=== PATIENT | male | born 1955 | race Caucasian/White ===

== ENCOUNTER 2016-06-24 07:44 | Emergency (ER) | payer SELFPAY ==
--- NOTE | 2016-06-24 09:03 | ER Document Report ---
ED General - General Chief Complaint: Headache Stated Complaint: TINGLING IN FINGER Mode of Arrival: Ambulatory Information source: Patient Notes: 61-year-old male presents with complaints of sudden headache right eye pain associated with right-sided weakness numbness and confusion. Patient notes symptoms lasted about now resolved while in the emergency department. Patient has had a history of a left-sided carotid stenosis with carotid ectomy. TRAVEL OUTSIDE OF THE [place] 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 Recently seen / treated by doctor: Yes - Related Data Allergies/Adverse Reactions: zolpidem [From Ambien] Allergy (Verified 06/24/16 07:51) Past Medical History - Social History Smoking Status: Current Every Day Smoker Cigarette use (# per day): No Chew tobacco use (# tins/day): Yes Smoking Education Provided: No Frequency of alcohol use: None Drug Abuse: Marijuana Family History: Reviewed & Not Pertinent Patient has suicidal ideation: No Patient has homicidal ideation: No Endocrine Medical History: Reports: Hx Diabetes Mellitus Type 2 Renal/ Medical History: Denies: Hx Peritoneal Dialysis Past Surgical History: Reports: Hx Cardiac Surgery Review of Systems - Review of Systems Notes: REVIEW OF SYSTEMS: CONSTITUTIONAL : Denies fever, chills, or sweats. Denies recent illness. EENT: Denies eye, ear, throat, or mouth pain or symptoms. Denies nasal or sinus congestion or discharge. Denies throat, tongue, or mouth swelling or difficulty swallowing. CARDIOVASCULAR: Denies chest pain. Denies palpitations or racing or irregular heart beat. Denies ankle edema. RESPIRATORY: Denies cough, cold, or chest congestion. Denies shortness of breath, difficulty breathing, or wheezing. GASTROINTESTINAL: Denies abdominal pain or distention. Denies nausea, vomiting , or diarrhea. Denies blood in vomitus, stools, or per rectum. Denies black, tarry stools. Denies constipation. GENITOURINARY: Denies difficulty urinating, painful urination, burning, frequency, blood in urine, or discharge. MUSCULOSKELETAL: Denies back or neck pain or stiffness. Denies joint pain or swelling. SKIN: Denies rash, lesions or sores. HEMATOLOGIC : Denies easy bruising or bleeding. LYMPHATIC: Denies swollen, enlarged glands. NEUROLOGICAL: Symptoms have resolved PSYCHIATRIC: Denies anxiety or stress. Denies depression, suicidal ideation, or homicidal ideation. ALL OTHER SYSTEMS REVIEWED AND NEGATIVE. Dictation was performed using [employer] voice recognition software PHYSICAL EXAMINATION: GENERAL: Well-appearing, well-nourished and in no acute distress. HEAD: Atraumatic, normocephalic. EYES: Pupils equal round and reactive to light, extraocular movements intact, sclera anicteric, conjunctiva are normal. ENT: Nares patent, oropharynx clear without exudates. Moist mucous membranes. NECK: Normal range of motion, supple without lymphadenopathy LUNGS: Breath sounds clear to auscultation bilaterally and equal. No wheezes rales or rhonchi. HEART: Regular rate and rhythm without murmurs ABDOMEN: Soft, nontender, nondistended abdomen. No guarding, no rebound. No masses appreciated. Musculoskeletal: Normal range of motion, no pitting or edema. No cyanosis. NEUROLOGICAL: Cranial nerves grossly intact. Normal speech, normal gait. Normal sensory, motor exams and NIH score 0 PSYCH: Normal mood, normal affect. SKIN: Warm, Dry, normal turgor, no rashes or lesions noted. Physical Exam - Vital signs Vitals: Temp Pulse Resp BP Pulse Ox 97.4 F 92 16 136/91 H 97 06/24/16 07:49 06/24/16 07:49 06/24/16 07:49 06/24/16 07:49 06/24/16 07:49 Course - Re-evaluation Re-evalutation: 06/24/16 09:02 Patient does not wish to be admitted, I did explain to them risk and benefits, I will await lab results and imaging results first. He is adamant that he believes 06/24/16 09:45 06/24/16 10:02 Patient already takes full dose aspirin, he refuses neurology follow-up, he refuses admission, he understands risks and benefits. I have had multiple conversations with him regarding this and he states he will at least follow-up with low cost clinic if I provide him with. Discharge instructions will include this After performing a Medical Screening Examination, I spoke with the patient at length in regards to leaving the hospital against medical advice. I do not believe the patient should leave but the patient is alert oriented x4, understands the risks and benefits of staying and leaving including disability and . Pt understands that he can return at any time for further care and is more than welcome to do so. Pt verbalizes this understanding. - Vital Signs Vital signs: Temp Pulse Resp BP Pulse Ox 97.4 F 92 16 136/91 H 97 06/24/16 07:49 06/24/16 07:49 06/24/16 07:49 06/24/16 07:49 06/24/16 09:10 - Laboratory Result Diagrams: 06/24/16 09:00 06/24/16 09:00 Laboratory results interpreted by me: 06/24/16 06/24/16 06/24/16 09:00 09:00 09:00 RDW 14.1 H Chloride 108 H BUN 27 H Glucose 143 H POC Glucose 151 H - Diagnostic Test Radiology reviewed: Image reviewed, Reports reviewed - EKG Interpretation by Me EKG shows normal: Sinus rhythm, Holden, Intervals, QRS Complexes Discharge - Discharge Clinical Impression: TIA (transient ischemic attack) Qualifiers: Transient cerebral ischemia type: unspecified Qualified Code(s): G45.9 - Transient cerebral ischemic attack, unspecified Condition: Serious Disposition: AGAINST MEDICAL ADVICE Additional Instructions: Please return immediately at any time for further evaluation and care You're currently leaving AGAINST MEDICAL ADVICE, I believe this is a terrible decision, but since you are alert and oriented and understands the risks and benefits of staying versus leaving you may leave against my decision Referrals: COOPER PHAN MD [ACTIVE STAFF] - Follow up tomorrow
[2016-06-24 09:24] LABS: ABSOLUTE BASOPHILS # (AUTO) 0.1 10^3/uL (0.0-0.2); ABSOLUTE EOSINOPHILS # (AUTO) 0.2 10^3/uL (0.0-0.6); ABSOLUTE LYMPHOCYTES (AUTO) 1.8 10^3/uL (0.5-4.7); ABSOLUTE MONOCYTES (AUTO) 0.5 10^3/uL (0.1-1.4); ABSOLUTE NEUT (AUTO) 4.7 10^3/uL (1.7-8.2); EOSINOPHILS % (AUTO) 2.9 % (0-6); HEMATOCRIT 47.3 % (37.9-51.0); HGB HCT DIFFERENCE 0.7; LYMPHOCYTES % (AUTO) 24.3 % (13-45); MEAN CORPUSCULAR HEMOGLOBIN 31.4 pg (27.0-33.4); MEAN CORPUSCULAR HGB CONC 33.9 g/dL (32.0-36.0); MEAN CORPUSCULAR VOLUME 93 fl (80-97); MONOCYTES % (AUTO) 6.9 % (3-13); PARTIAL THROMBOPLASTIN TIME 26.7 SEC (23.5-35.8); RED BLOOD COUNT 5.11 10^6/uL (4.35-5.55); RED CELL DISTRIBUTION WIDTH 14.1 % (11.5-14.0); SEGMENTED NEUTROPHILS % (AUTO) 64.9 % (42-78); WHITE BLOOD COUNT 7.3 10^3/uL (4.0-10.5)
[2016-06-24 09:28] LABS: PROTHROMBIN TIME 12.1 SEC (11.4-15.4)
[2016-06-24 09:43] LABS: ALANINE AMINOTRANSFERASE 37 U/L (21-72); ALBUMIN 4.1 g/dL (3.5-5.0); ALKALINE PHOSPHATASE 87 U/L (38-126); ANION GAP 12 (5-19); ASPARTATE AMINO TRANSFERASE 20 U/L (17-59); BILIRUBIN,TOTAL 0.5 mg/dL (0.2-1.3); BLOOD UREA NITROGEN 27 mg/dL (7-20); CALCIUM 9.6 mg/dL (8.4-10.2); CARBON DIOXIDE 22 mmol/L (22-30); CHLORIDE 108 mmol/L (98-107); CREATINE KINASE 78 U/L (55-170); CREATININE RESULT 0.83 mg/dL (0.52-1.25); GLUCOSE 143 mg/dL (75-110); POTASSIUM 4.8 mmol/L (3.6-5.0); SODIUM 141.6 mmol/L (137-145); TOTAL PROTEIN 7.1 g/dL (6.3-8.2)
[2016-06-24 09:55] LABS: CREATINE KINASE MB 0.63 ng/mL (<4.55); TROPONIN I < 0.012 ng/mL
[2016-06-24 10:15] VITALS: BP 125/78
--- NOTE | 2016-06-24 21:46 | EKG REPORT ---
SEVERITY:- BORDERLINE ECG - SINUS RHYTHM PROBABLE LEFT ATRIAL ABNORMALITY BORDERLINE RIGHT AXIS DEVIATION : Confirmed by: Tone Sierra 24-Jun-2016 21:45:52
== END 2016-06-24 10:15 | disposition left against medical advice (07) ==
LOC: ER 07:44
DX: G45.9 Transient cerebral ischemic attack, unspecified (principal); H57.11 Ocular pain, right eye; R53.1 Weakness; R41.0 Disorientation, unspecified; R20.0 Anesthesia of skin; E11.9 Type 2 diabetes mellitus without complications; F17.200 Nicotine dependence, unspecified, uncomplicated; Z88.8 Allergy status to other drugs, medicaments and biological substances; Z98.890 Other specified postprocedural states; Z86.79 Personal history of other diseases of the circulatory system; Z53.20 Procedure and treatment not carried out because of patient's decision for unspecified reasons
CPT/HCPCS: 36415; 70450; 71010; 80053; 82550; 82553; 82962; 84484; 85025; 85610; 85730; 93005; 93010; 99285